=== PATIENT | female | born 1975 | race Caucasian/White ===

== ENCOUNTER 2017-02-11 11:48 | Emergency (ER) | payer BC ==
[2017-02-11 12:14] VITALS: BP 117/72
--- NOTE | 2017-02-11 12:26 | EDM.PDOC ---
ED HPI Trauma - General Chief Complaint: Lower Extremity Injury/Pain Time Seen by Provider: 02/11/17 12:03 Source: Reports: Patient - History of Present Illness INITIAL COMMENTS - FREE TEXT/NARRATIVE: twisted right ankle last night, presents to ER with pain and swelling. Has been icing and using crutches Symptom Onset Date: 02/10/17 Symptom Onset Time: 20:00 Occurred When: yesterday Occurred Where: home Method of Injury: other (twisted ankle while walking) Severity: moderate Pain/Injury Location: Reports: lower extremity, right Consciousness: Reports: no loss of consciousness, remembers incident Associated Symptoms: Reports: no other symptoms Allergies/ADRs: Allergies Sulfa (Sulfonamide Antibiotics) Allergy (Verified 02/11/17 12:08) Rash Home Medications: Ambulatory Orders . [No Known Home Meds] 02/11/17 [Confirmed 02/11/17] Past Medical History Respiratory History: Reports: Asthma Social & Family History - Tobacco Use Smoking Status *Q: Never Smoker Review of Systems - Review of Systems Review Of Systems: ROS reveals no pertinent complaints other than HPI. Constitutional: Reports: no symptoms Eyes: Reports: no symptoms Ears: Reports: no symptoms Nose: Reports: no symptoms Mouth/Throat: Reports: no symptoms Respiratory: Reports: No Symptoms Cardiovascular: Reports: no symptoms GI/Abdominal: Reports: No symptoms Genitourinary: Reports: no symptoms Musculoskeletal: Reports: other (painful swollen right lateral ankle and foot) Skin: Reports: bruising, other (right ankle and foot) Neurological: Reports: No Symptoms Psychiatric: Reports: no symptoms Trauma Exam - Physical Exam Exam: See Below Exam Limited By: No limitations General Appearance: Reports: alert, WD/WN, no apparent distress Head: Reports: atraumatic, normocephalic Respiratory Exam: Reports: no respiratory distress, lungs clear, normal breath sounds Cardiovascular: Reports: normal peripheral pulses, regular rate, rhythm Extremities: Reports: pain with movement, pedal edema, tenderness, unable to bear weight, other (right lateral ankle swollen with limited ROM due to pain. circulation and sensation intact. pedal pulse intact) Neurologic: Reports: normal mood/affect, oriented x 3 Skin: Reports: Other (no bruising except over irght ankle laterally) Course - Vital Signs Last Recorded V/S: Last Vital Signs Temp 37.1 C 02/11/17 12:00 Pulse 86 02/11/17 12:00 Resp 16 02/11/17 12:00 BP 117/72 02/11/17 12:00 Pulse Ox 99 02/11/17 12:00 - Orders/Labs/Meds Orders: Active Orders 24 hr Category Date Time Status Ankle Min 3V Rt [CR] Stat Exams 02/11/17 12:04 Taken - Re-Assessments/Exams Free Text/Narrative Re-Assessment/Exam: 02/11/17 12:37 x-ray right ankle negative for fracture per radiology Departure - Departure Time of Disposition: 12:38 Disposition: Home, Self-Care 01 Condition: good Clinical Impression: Right ankle sprain Qualifiers: Encounter type: initial encounter Involved ligament of ankle: other ligament Qualified Code(s): S93.491A - Sprain of other ligament of right ankle, initial encounter Instructions: Ankle Sprain, [id number] Forms: ED Department Discharge Additional Instructions: Rest, ice frequently. no weight bearing until pain improves, use crutches. Keep wrapped with racheal wrap. recheck if symptoms worsen or fail to improve - Problem List & Annotations (1) Right ankle sprain SNOMED Code(s): 07135516 Code(s): S93.401A - SPRAIN OF UNSPECIFIED LIGAMENT OF RIGHT ANKLE, INIT ENCNTR Status: Acute Priority: High Current Visit: Yes Onset Date: ~ Qualifiers: Encounter type: initial encounter Involved ligament of ankle: other ligament Qualified Code(s): S93.491A - Sprain of other ligament of right ankle , initial encounter - My Orders Last 24 Hours: My Active Orders 02/11/17 12:04 Ankle Min 3V Rt [CR] Stat - Assessment/Plan Last 24 Hours: My Active Orders 02/11/17 12:04 Ankle Min 3V Rt [CR] Stat
== END 2017-02-11 12:45 | disposition home or self-care (01) ==
LOC: VM.ED 11:48
DX: S93.491A Sprain of other ligament of right ankle, initial encounter (principal); J45.909 Unspecified asthma, uncomplicated; Z88.2 Allergy status to sulfonamides; X50.1XXA Overexertion from prolonged static or awkward postures, initial encounter; Y93.01 Activity, walking, marching and hiking; Y92.009 Unspecified place in unspecified non-institutional (private) residence as the place of occurrence of the external cause
CPT/HCPCS: 73610-RT; 99283

== ENCOUNTER 2020-02-16 21:14 | Emergency (ER) | payer BC ==
[2020-02-16 21:29] VITALS: BP 139/88; PULSE 103
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
== END 2020-02-16 21:56 | disposition home or self-care (01) ==
LOC: VM.ED 21:14
DX: M54.6 Pain in thoracic spine (principal); Z88.2 Allergy status to sulfonamides; V47.5XXA Car driver injured in collision with fixed or stationary object in traffic accident, initial encounter
CPT/HCPCS: 99283

== ENCOUNTER 2023-04-06 07:33 | Day surgery (SDC) | payer BC ==
[~2023-04-06 07:33] MED LIST: Propofol 200 MG/20 ML SDV ONE; fentaNYL 100 MCG/2 ML SDV ONE
[2023-04-06] MEDS: Lactated Ringers 1,000 ML IV SCH (07:59)
[2023-04-06 11:01] VITALS: BP 94/70; PULSE 60
== END 2023-04-06 12:00 | disposition home or self-care (01) ==
LOC: VM.SDS 07:33
PROVIDERS: ATTEND Student in an Organized Health Care Education/Training Program
DX: Z12.11 Encounter for screening for malignant neoplasm of colon (principal); F32.A Depression, unspecified; E03.9 Hypothyroidism, unspecified; J45.20 Mild intermittent asthma, uncomplicated; E66.9 Obesity, unspecified; Z80.0 Family history of malignant neoplasm of digestive organs; Z88.2 Allergy status to sulfonamides; Z68.30 Body mass index [BMI] 30.0-30.9, adult; Z79.899 Other long term (current) drug therapy
CPT/HCPCS: 00812; J2704; J3010; J7120